=== PATIENT | male | born 1955 | race Caucasian/White ===

== ENCOUNTER 2024-05-19 10:49 | Emergency (ER) | payer MEDICARE, SELFPAY ==
--- NOTE | ~2024-05-19 | XR_ITS ---
EXAMINATION: XR knee RT 3V DATE: 05/19/2024 11:09 INDICATION: Right knee injury and pain. TECHNIQUE: 3 views of right knee were obtained. COMPARISON: None. FINDINGS: There is lateral subluxation of patella. No fracture. There is mild tricompartmental osteoa rthritis of the knee. There is chondrocalcinosis of medial and lateral menisci. There is a small knee joint effusion. IMPRESSION: 1. Mild right knee osteoarthritis. 2. Small right knee joint effusion. Reviewed, dictated and finalized at location A.
[2024-05-19 10:52] VITALS: BP 162/94; PULSE 66; RESP 18; TEMP 36.4; O2SAT 99
[2024-05-19 12:00] VITALS: BP 147/87; PULSE 63; RESP 18; O2SAT 97
--- NOTE | 2024-05-19 12:16 | ED.LOWEXIN ---
HPI - Extremity Injury (Lower) General Chief Complaint: Extremity Injury, Lower Stated Complaint: right knee injury Time Seen by Provider: 05/19/24 10:50 History of Present Illness HPI Narrative: Patient history of arthritis presents here with swelling to his right knee, this is happened in the past and required an arthrocentesis, he has no fevers or chills, redness to his skin, and no recent trauma that he can think of though he has been exercising quite a bit. Has been elevating and wearing compression on his knee Related Data Allergies Allergy/AdvReac Type Severity Reaction Status Date / Time No Known Allergies Allergy Verified 05/19/24 13:29 Review of Systems Review of Systems: All systems reviewed & are unremarkable except as noted in HPI and below Exam Narrative: EXAMINATION OF ORGAN SYSTEMS/BODY AREAS: Constitutional: Vital signs per nursing GENERAL:[No acute distress, non-toxic appearing.] HEAD: Normal with no signs of head trauma. EYES: EOMI, conjunctiva normal ENT: Hearing grossly intact LUNGS: Nonlabored breathing. HEART: [Regular rate and rhythm] ABD: [Soft], [nontender to palpation] EXT: Normal range of motion, large effusion to right knee, normal passive and active range of motion SKIN: No overlying redness NEURO: [Alert and oriented x 3. No gross focal sensory or strength deficits.] PSYCH: Normal affect Course Vital Signs Vital signs: Vital Signs Temperature 97.5 F L 05/19/24 10:52 Pulse Rate 66 05/19/24 10:52 Respiratory Rate 18 05/19/24 10:52 Blood Pressure 162/94 H 05/19/24 10:52 Pulse Oximetry 99 05/19/24 10:52 Temperature 97.5 F L 05/19/24 10:52 Pulse Rate 60 05/19/24 13:00 Respiratory Rate 16 05/19/24 13:00 Blood Pressure 116/85 05/19/24 13:00 Pulse Oximetry 98 05/19/24 13:00 Procedures Joint Aspiration/Injection Joint Asp./Inject. 1: Joint Aspiration Date: 05/19/24 Joint Aspiration Time: 11:30 Time Out Performed: Yes Side of body: right Joint Aspirated: knee Skin Prep: sterile prep and drape (povidone-iodine, chlorehexidine) Local Anesthetic: lidocaine 1% and with epi Amount of anesthesia used (mL): 3 Needle Size Used: 18G Fluid Obtained: viscous Total fluid obtained (mL): 28 Medication Injected, if any: Lidocaine Amount of medication injected (mL): 2 Patient Tolerated Procedure: well and no complications MDM - Extremity Injury (Lower) MDM Narrative Medical decision making narrative: Patient presents with right knee pain/swelling, no systemic symptoms, he is very well-appearing and I have very low concern for emergency such is septic joint without any skin changes or fevers or pain with movement knee Patient would like arthrocentesis, see procedure note. Fluid is clear and yellow, not consistent with infection. Patient feels much better afterwards, knee effusion resolved, I will trial a few days of steroids for anti-inflammatory, with return precautions and follow-up to ortho provided. Lab Data Labs: Lab Results 05/19/24 Range/Units 12:12 Synovial Source Lt knee syn fluid Synovial Color Yellow (Colorless) Synovial Appearance Clear (Clear) Synovial RBC < 2000 H (0-0) /uL Synovial Nuc Cells 3169 H (0-200) /uL Synovial Neutrophils 50 H (0-25) % Synovial Lymphocytes 28 % Synovial Monocytes 21 % Synovial Macrophages 1 % Synovial Crystals None seen (None Seen) Synovial Total Protein Pending Discharge Plan Discharge Clinical Impression: Acute joint effusion Patient Disposition: Home, Self-Care Condition: Stable Instructions: Swollen Knee Joint (ED) Additional Instructions: Please follow up with your doctor; you can always return for any further issues. Prescriptions: New prednisone 20 mg tablet 40 mg PO DAILY 5 Days Qty: 10 0RF Follow-up/Referrals: Ky Ronquillo MD [Physi
[2024-05-19 13:00] VITALS: BP 116/85; PULSE 60; RESP 16; O2SAT 98
[2024-05-19 13:09] LABS: Appearance Synovial Fluid Clear (Clear); Color Synovial Fluid Yellow (Colorless); Neutrophils Synovial Fluid 50 % (0-25); Nucleated Cell Synovial Fluid 3169 /uL (0-200); RBC Synovial Fluid < 2000 /uL (0-0); Source Synovial Fluid Lt Knee Syn Fluid
[2024-05-19 13:10] LABS: Lymphocytes Synovial Fluid 28 %
[2024-05-19 13:11] LABS: Macrophages Synovial Fluid 1 %; Monocytes Synovial Fluid 21 %
[2024-05-19 13:22] LABS: Crystals Synovial Fluid None Seen (None Seen)
[2024-05-23 20:04] LABS: Total Protein Synovial Fluid 2.6 g/dL (1.0-3.0)
== END 2024-05-19 13:30 | disposition home or self-care (01) ==
PROVIDERS: Emergency Provider Emergency Medicine
DX: M25.461 Effusion, right knee (principal); M17.11 Unilateral primary osteoarthritis, right knee
CPT/HCPCS: 20610; 73562; 84157; 87070; 87075; 87205; 89051; 89060; 99283